=== PATIENT | male | born 1980 | race Caucasian/White ===

== ENCOUNTER 2018-08-19 20:18 | Emergency (ER) | payer OTHER ==
[~2018-08-19] VITALS: Ht 172.7 cm; Wt 79.4 kg
[2018-08-19 20:19] VITALS: BP 142/87
[2018-08-19] MEDS ORDERED: IBUPROFEN 600600 M1 PO (20:37)
[2018-08-19] MEDS ORDERED: AMOXICILLIN500 M1 PO (20:37)
== END 2018-08-19 20:50 | disposition home or self-care (01) ==
LOC: ER 20:18
DX: K08.89 Other specified disorders of teeth and supporting structures (principal); F17.210 Nicotine dependence, cigarettes, uncomplicated